=== PATIENT | female | born 1990 | race Caucasian/White ===

== ENCOUNTER 2018-08-27 09:51 | Emergency (ER) | payer OTHER, SELFPAY ==
[2018-08-27 09:55] VITALS: BP 129/90; PULSE 105; RESP 14; TEMP 36.7; O2SAT 100; BMI 19.7
--- NOTE | 2018-08-27 10:05 | DI.US.S_ITS ---
PROCEDURE: US OB <= 14 WEEKS FETUS INDICATIONS: BLEEDING OUTSIDE/PRIOR DATING DATA: Last menstrual period (LMP): 06/22/18. LMP-based estimated date of delivery (CAROLYN): 03/29/19. First dating scan (date and location): 08/27/18. Estimated date of delivery (CAROLYN) from first dating scan: 03/18/19. TECHNIQUE: Real-time scanning was performed of the fetus and maternal pelvic organs, with image documentation. Endovaginal scanning was also performed to better visualize the fetus and maternal ovaries. COMPARISON: None. FINDINGS: Embryo: A single live intrauterine is identified with heart motion detected at 175 beats per minute. A developing embryo is well visualized. A yolk sac is seen. There is a curvilinear area of hypoechogenicity that does not demonstrate internal vascularity that is located along the inferior margin of the gestational sac and encompasses at least 40% of the gestational sac. This structure is noted to extend over the internal cervical os. [place]-rump length: 4.1 cm, 11 weeks 0 days Measurement variability in dating: +/- 4 weeks by LMP, +/- 7 days by mean sac diameter (use before 6 weeks gestation if crown-rump length not able to be measured), +/- 5 days by crown-rump length (up to 8 weeks 6 days gestation), +/- 7 days by crown-rump length (up to 13 weeks 6 days gestation). Maternal organs: The right ovary is within normal limits. The left ovary was not seen. No left adnexal abnormality is appreciated. Limited images through the kidneys demonstrate no hydronephrosis. IMPRESSION: 1. Single live intrauterine at 11 weeks 0 days (current CAROLYN 03/18/19) is discordant with the clinical dates by 11 days. Followup imaging at 20 weeks would be helpful to evaluate for interval growth and anatomy. 2. Probable moderate-sized subchorionic hemorrhage along the inferior margin of the gestational sac. Dictated by: Jim Garcia M.D. on 08/27/2018 at 10:25 Approved by: Jim Garcia M.D. on 08/27/2018 at 10:28
[2018-08-27 10:28] LABS: Add Manual Diff / Slide Review NO; Basophils Absolute Auto 100 /uL (0-100); Basophils Percent Auto 0.7 % (0-2); Eosinophils Absolute Auto 100 /uL (0-450); Eosinophils Percent Auto 0.5 % (2-4); Hematocrit 37.3 % (36-46); Lymphocytes Absolute Auto 1600 /uL (1100-4500); Lymphocytes Percent Auto 15.7 % (25-40); Mean Corpuscular HGB Conc 34.9 % (30-36); Mean Corpuscular Hemoglobin 32.2 PG (26-34); Mean Corpuscular Volume 92.2 fL (80-100); Monocytes Absolute Auto 700 /uL (0-900); Monocytes Percent Auto 6.8 % (3-14); Neutrophils Absolute Auto 7800 /uL (1500-7000); Neutrophils Percent Auto 76.3 % (50-75); Platelet Count 251 X10^3/uL (150-400); Red Blood Cell Count 4.05 X10^6/uL (4.0-5.2); Red Cell Distribution Width 12.2 % (11.6-14.8); White Blood Cell Count 10.3 X10^3/uL (4.5-11.0)
[2018-08-27 11:00] VITALS: BP 101/74; PULSE 81; O2SAT 100
[2018-08-27 11:22] LABS: HCG Quantitative /Beta subunit 172040 mIU/mL
[2018-08-27 12:00] VITALS: BP 104/71; PULSE 88; O2SAT 100
--- NOTE | 2018-08-27 15:27 | ED.FEMALEGU ---
HPI - Female Genitourinary General Chief complaint: Vaginal Bleeding Stated complaint: vaginal bleeding Time Seen by Provider: 08/27/18 10:05 Source: patient Mode of arrival: ambulatory Limitations: no limitations History of Present Illness HPI Narrative: Patient states she is in her 1st trimester , and began bleeding a couple of days ago. She states that initially, it started as red blood that progressed to a light period like flow. She did not pass any tissue but did notice clots. Patient states that today the flow started as more of a brownish color then turned carpenter, and now, she is not bleeding at all. Patient denies any abdominal pain. She has not been lightheaded. Patient has not had an ultrasound yet. She states her last menstrual period was June 22, and that seemed normal. She states that otherwise, her has been going well. No other complaints at this time. Nausea or no fevers. Related Data Home Medications Medication Instructions Recorded Confirmed vit-iron fum-folic ac 1 cap PO QDAY #0 07/11/17 08/27/18 [Mynatal] Allergies Allergy/AdvReac Type Severity Reaction Status Date / Time No Known Drug Allergies Allergy Unknown Verified 08/27/18 09:59 [NO KNOWN DRUG ALLERGIES] Review of Systems Constitutional Denies chills, Denies fever(s), Denies lethargy and Denies weakness Eyes Denies change in vision, Denies eye discharge, Denies irritation and Denies loss of vision ENT Ears, Nose, Mouth, and Throat: Denies change in voice, Denies neck pain and Denies sore throat Cardiovascular Denies chest pain, Denies irregular heart rhythm, Denies lightheadedness, Denies palpitations, Denies dyspnea, Denies dyspnea on exertion and Denies orthopnea Respiratory Denies cough, Denies dyspnea, Denies dyspnea on exertion and Denies wheezing Gastrointestinal Gastrointestinal: Denies abdominal pain, Denies change in bowel habits, Denies diarrhea, Denies nausea and Denies vomiting Genitourinary Reports abnormal vaginal bleeding, Denies hematuria, Denies flank pain, Denies urinary incontinence and Denies urinary urgency Musculoskeletal Denies neck pain Integumentary/Breasts Denies pruritus, Denies erythema, Denies rash and Denies wounds Neurologic Denies confusion, Denies loss of vision and Denies weakness Psychiatric Denies anxiety, Denies confusion, Denies depression, Denies homicidal ideation and Denies suicidal ideation Endocrine Denies palpitations Hematologic/Lymphatic Denies easy bruising Allergic/Immunologic Denies wheezing [facility] Medical History (Acute) Vaginal bleeding affecting early (Acute) Surgical History No pertinent past surgical history (Acute) Social History Smoking Status: Never smoker Exam Initial Vital Signs Initial Vital Signs: Vital Signs Temperature 98.1 F 08/27/18 09:55 Pulse Rate 105 H 08/27/18 09:55 Respiratory Rate 14 08/27/18 09:55 Blood Pressure 129/90 08/27/18 09:55 Pulse Oximetry 100 08/27/18 09:55 Const General: cooperative and well developed Nutritional Appearance: well nourished Orientation: alert, awake, oriented x3 and not confused HENAZ Head: normocephalic and atraumatic Ears: external ears normal Nose: external nose normal and No nasal discharge Face and sinus: face symmetric and No dry mucous membranes Mouth: oral mucosae normal and moist mucous membranes Teeth and gingiva: dentition normal Eyes General: appearance normal, both eyes and all related structures Eyelids: eyelids normal Conjunctivae: conjunctivae normal Sclera: sclerae normal Pupils: PERRL EOM: EOM intact bilaterally Neck Neck: normal visual inspection, trachea midline, No lymphadenopathy, No midline deformity and No JVD Lymphatic: No lymphedema Chest Chest: normal inspection of the chest Resp Effort & Inspection: normal respiratory effort, able to speak in complete sentences, no respiratory distress and no use of accessory muscles Auscultation: clear to auscultation bilaterally, no rales, no rhonchi and no wheezes Cardio Rate: regular rate Rhythm: regular rhythm Heart Sounds: no click, no gallops, no murmurs and no rubs Pulses: normal peripheral pulses GI Inspection: non-distended Palpation: soft, no hepatosplenomegaly, No guarding, No pulsatile mass and No tender Back/Spine/Pelvis Back: No CVA tenderness Cervical Spine: cervical ROM normal and No pain with cervical ROM Thoracic/Lumbar Spine: thoracic and lumbar spine normal to inspection Skin General: no rashes or lesions noted, No jaundice and No petechiae Neuro General: alert, oriented x3, gait normal and no focal motor deficits Speech: speech normal Extrem General: full ROM, no clubbing, cyanosis or edema, no pedal edema and no calf tenderness Psych Appearance: well kempt Mental Status: mental status grossly normal Attitude: cooperative Thought Content: normal and suicidality Judgment: judgment good Course Course Narrative: Patient was worked up with a urinalysis and OB ultrasound, as well as CBC. Her OB ultrasound showed a viable 11 week intrauterine with subchorionic hemorrhage. I did discuss with the patient that the cause of her bleeding is most likely drainage of the hematoma, and that her is viable at this time. We have discussed her need for OB follow-up, as well as the usual indications for return. Orders Ordered: ED Orders 08/27/18 10:05 US OB <= 14 weeks fetus Stat 08/27/18 10:17 ABO RH Type Stat Complete Blood Count AUTO DIFF Stat HCG Quantitative Stat Vital Signs - 8 hr 08/27/18 11:00 08/27/18 12:00 Pulse Rate 81 88 Blood Pressure [Left Arm] 101/74 104/71 Pulse Oximetry 100 100 MDM - Female Genitourinary Medical Records Attestation: I reviewed the patient's medical records. Lab Data Attestation: I reviewed the patient's lab results. Result diagrams: 08/27/18 10:17 Lab Results 08/27/18 08/27/18 08/27/18 Range/Units 10:17 10:17 10:17 WBC 10.3 (4.5-11.0) X10^3/uL RBC 4.05 (4.0-5.2) X10^6/uL Hgb 13.0 (12.0-16.0) g/dL Hct 37.3 (36-46) % MCV 92.2 (80-100) fL MCH 32.2 (26-34) PG MCHC 34.9 (30-36) % RDW 12.2 (11.6-14.8) % Plt Count 251 (150-400) X10^3/uL Neut % (Auto) 76.3 H (50-75) % Lymph % (Auto) 15.7 L (25-40) % [place] % (Auto) 6.8 (3-14) % Eos % (Auto) 0.5 L (2-4) % Baso % (Auto) 0.7 (0-2) % Neut # (Auto) 7800 H (6486-0842) /uL Lymph # (Auto) 1600 (7966-9077) /uL [place] # (Auto) 700 (0-900) /uL Eos # (Auto) 100 (0-450) /uL Baso # (Auto) 100 (0-100) /uL HCG, Quant 726060 mIU/mL Blood Type A Positive Urine Dip Bedside Urine Glucose Negative Bedside Urine Bilirubin - Negative Bedside Urine Ketone - Negative Urine Specific [place] 1.025 Bedside Urine Occult Blood - Negative Bedside Urine pH 6.0 Bedside Urine Protein +/- 15 Bedside Urine Urobilinogen - Negative Bedside Urine Nitrite - Negative Bedside Urine Leukocytes - Negative Esterase Imaging Data Ob ultrasound: Radiologist's impression: [address] [address] Ultrasound Report Signed Patient: Pascale Rodney [facility]#: [id number] : 1990Acct:[id number] Age/Sex: FDate of Service: 08/27/18 Loc: ED Accession Number: [id number] Procedure: US OB <= 14 weeks fetus Ordering Provider: Reyna Chaudhary MD PROCEDURE: US OB <= 14 WEEKS FETUS INDICATIONS: BLEEDING OUTSIDE/PRIOR DATING DATA: Last menstrual period (LMP): 06/22/18. LMP-based estimated date of delivery (CAROLYN): 03/29/19. First dating scan (date and location): 08/27/18. Estimated date of delivery (CAROLYN) from first dating scan: 03/18/19. TECHNIQUE: Real-time scanning was performed of the fetus and maternal pelvic organs, with image documentation. Endovaginal scanning was also performed to better visualize the fetus and maternal ovaries. COMPARISON: None. FINDINGS: Embryo: A single live intrauterine is identified with heart motion detected at 175 beats per minute. A developing embryo is well visualized. A yolk sac is seen. There is a curvilinear area of hypoechogenicity that does not demonstrate internal vascularity that is located along the inferior margin of the gestational sac and encompasses at least 40% of the gestational sac. This structure is noted to extend over the internal cervical os. [place]-rump length: 4.1 cm, 11 weeks 0 days Measurement variability in dating: +/- 4 weeks by LMP, +/- 7 days by mean sac diameter (use before 6 weeks gestation if crown-rump length not able to be measured), +/- 5 days by crown-rump length (up to 8 weeks 6 days gestation), +/- 7 days by crown-rump length (up to 13 weeks 6 days gestation). Maternal organs: The right ovary is within normal limits. The left ovary was not seen. No left adnexal abnormality is appreciated. Limited images through the kidneys demonstrate no hydronephrosis. IMPRESSION: 1. Single live intrauterine at 11 weeks 0 days (current CAROLYN 03/18/19) is discordant with the clinical dates by 11 days. Followup imaging at 20 weeks would be helpful to evaluate for interval growth and anatomy. 2. Probable moderate-sized subchorionic hemorrhage along the inferior margin of the gestational sac. Dictated by: Jim Garcia M.D. on 08/27/2018 at 10:25 Approved by: Jim Garcia M.D. on 08/27/2018 at 10:28 Discharge Plan Departure Patient Disposition: Home Clinical Impression: , Vaginal bleeding affecting early Discharge Date/Time: 08/27/18 12:26 Interventions: ED Discharge Assessment Last Done: 08/27/18 12:26 Instructions: DI for Vaginal Bleeding During Activity Restrictions/Additional Instructions: Your ultrasound shows a live fetus at about 11 weeks. You were found to have a small pocket of blood, called a subchorionic hemorrhage, which is draining, and is the cause of your bleeding. There is no evidence of stress to the at this time. Please follow up with your OBGYN for further concerns, and for care. Your urinalysis was unremarkable. Prescriptions: No Action vit-iron fum-folic ac [Mynatal] 1 EACH capsule 1 cap PO QDAY Qty: 0 RF: 0
--- NOTE | 2018-08-27 15:34 | ED_ITS ---
HPI - Female Genitourinary General Chief complaint: Vaginal Bleeding Stated complaint: vaginal bleeding Time Seen by Provider: 08/27/18 10:05 Source: patient Mode of arrival: ambulatory Limitations: no limitations History of Present Illness HPI Narrative: Patient states she is in her 1st trimester , and began bleeding a couple of days ago. She states that initially, it started as red blood that progressed to a light period like flow. She did not pass any tissue but did notice clots. Patient states that today the flow started as more of a brownish color then turned carpenter, and now, she is not bleeding at all. Patient denies any abdominal pain. She has not been lightheaded. Patient has not had an ultrasound yet. She states her last menstrual period was June 22, and that seemed normal. She states that otherwise, her has been going well. No other complaints at this time. Nausea or no fevers. Related Data Home Medications Medication Instructions Recorded Confirmed vit-iron fum-folic ac 1 cap PO QDAY #0 07/11/17 08/27/18 [Mynatal] Allergies Allergy/AdvReac Type Severity Reaction Status Date / Time No Known Drug Allergies Allergy Unknown Verified 08/27/18 09:59 [NO KNOWN DRUG ALLERGIES] Review of Systems Constitutional Denies chills, Denies fever(s), Denies lethargy and Denies weakness Eyes Denies change in vision, Denies eye discharge, Denies irritation and Denies loss of vision ENT Ears, Nose, Mouth, and Throat: Denies change in voice, Denies neck pain and Denies sore throat Cardiovascular Denies chest pain, Denies irregular heart rhythm, Denies lightheadedness, Denies palpitations, Denies dyspnea, Denies dyspnea on exertion and Denies orthopnea Respiratory Denies cough, Denies dyspnea, Denies dyspnea on exertion and Denies wheezing Gastrointestinal Gastrointestinal: Denies abdominal pain, Denies change in bowel habits, Denies diarrhea, Denies nausea and Denies vomiting Genitourinary Reports abnormal vaginal bleeding, Denies hematuria, Denies flank pain, Denies urinary incontinence and Denies urinary urgency Musculoskeletal Denies neck pain Integumentary/Breasts Denies pruritus, Denies erythema, Denies rash and Denies wounds Neurologic Denies confusion, Denies loss of vision and Denies weakness Psychiatric Denies anxiety, Denies confusion, Denies depression, Denies homicidal ideation and Denies suicidal ideation Endocrine Denies palpitations Hematologic/Lymphatic Denies easy bruising Allergic/Immunologic Denies wheezing [facility] Medical History (Acute) Vaginal bleeding affecting early (Acute) Surgical History No pertinent past surgical history (Acute) Social History Smoking Status: Never smoker Exam Initial Vital Signs Initial Vital Signs: Vital Signs Temperature 98.1 F 08/27/18 09:55 Pulse Rate 105 H 08/27/18 09:55 Respiratory Rate 14 08/27/18 09:55 Blood Pressure 129/90 08/27/18 09:55 Pulse Oximetry 100 08/27/18 09:55 Const General: cooperative and well developed Nutritional Appearance: well nourished Orientation: alert, awake, oriented x3 and not confused HENDC Head: normocephalic and atraumatic Ears: external ears normal Nose: external nose normal and No nasal discharge Face and sinus: face symmetric and No dry mucous membranes Mouth: oral mucosae normal and moist mucous membranes Teeth and gingiva: dentition normal Eyes General: appearance normal, both eyes and all related structures Eyelids: eyelids normal Conjunctivae: conjunctivae normal Sclera: sclerae normal Pupils: PERRL EOM: EOM intact bilaterally Neck Neck: normal visual inspection, trachea midline, No lymphadenopathy, No midline deformity and No JVD Lymphatic: No lymphedema Chest Chest: normal inspection of the chest Resp Effort & Inspection: normal respiratory effort, able to speak in complete sentences, no respiratory distress and no use of accessory muscles Auscultation: clear to auscultation bilaterally, no rales, no rhonchi and no wheezes Cardio Rate: regular rate Rhythm: regular rhythm Heart Sounds: no click, no gallops, no murmurs and no rubs Pulses: normal peripheral pulses GI Inspection: non-distended Palpation: soft, no hepatosplenomegaly, No guarding, No pulsatile mass and No tender Back/Spine/Pelvis Back: No CVA tenderness Cervical Spine: cervical ROM normal and No pain with cervical ROM Thoracic/Lumbar Spine: thoracic and lumbar spine normal to inspection Skin General: no rashes or lesions noted, No jaundice and No petechiae Neuro General: alert, oriented x3, gait normal and no focal motor deficits Speech: speech normal Extrem General: full ROM, no clubbing, cyanosis or edema, no pedal edema and no calf tenderness Psych Appearance: well kempt Mental Status: mental status grossly normal Attitude: cooperative Thought Content: normal and suicidality Judgment: judgment good Course Course Narrative: Patient was worked up with a urinalysis and OB ultrasound, as well as CBC. Her OB ultrasound showed a viable 11 week intrauterine with subchorionic hemorrhage. I did discuss with the patient that the cause of her bleeding is most likely drainage of the hematoma, and that her is viable at this time. We have discussed her need for OB follow-up, as well as the usual indications for return. Orders Ordered: ED Orders 08/27/18 10:05 US OB <= 14 weeks fetus Stat 08/27/18 10:17 ABO RH Type Stat Complete Blood Count AUTO DIFF Stat HCG Quantitative Stat Vital Signs - 8 hr 08/27/18 11:00 08/27/18 12:00 Pulse Rate 81 88 Blood Pressure [Left Arm] 101/74 104/71 Pulse Oximetry 100 100 MDM - Female Genitourinary Medical Records Attestation: I reviewed the patient's medical records. Lab Data Attestation: I reviewed the patient's lab results. Result diagrams: 08/27/18 10:17 Lab Results 08/27/18 08/27/18 08/27/18 Range/Units 10:17 10:17 10:17 WBC 10.3 (4.5-11.0) X10^3/uL RBC 4.05 (4.0-5.2) X10^6/uL Hgb 13.0 (12.0-16.0) g/dL Hct 37.3 (36-46) % MCV 92.2 (80-100) fL MCH 32.2 (26-34) PG MCHC 34.9 (30-36) % RDW 12.2 (11.6-14.8) % Plt Count 251 (150-400) X10^3/uL Neut % (Auto) 76.3 H (50-75) % Lymph % (Auto) 15.7 L (25-40) % [place] % (Auto) 6.8 (3-14) % Eos % (Auto) 0.5 L (2-4) % Baso % (Auto) 0.7 (0-2) % Neut # (Auto) 7800 H (6156-0458) /uL Lymph # (Auto) 1600 (9313-5007) /uL [place] # (Auto) 700 (0-900) /uL Eos # (Auto) 100 (0-450) /uL Baso # (Auto) 100 (0-100) /uL HCG, Quant 906208 mIU/mL Blood Type A Positive Urine Dip Bedside Urine Glucose Negative Bedside Urine Bilirubin - Negative Bedside Urine Ketone - Negative Urine Specific [place] 1.025 Bedside Urine Occult Blood - Negative Bedside Urine pH 6.0 Bedside Urine Protein +/- 15 Bedside Urine Urobilinogen - Negative Bedside Urine Nitrite - Negative Bedside Urine Leukocytes - Negative Esterase Imaging Data Ob ultrasound: Radiologist's impression: [address] [address] Ultrasound Report Signed Patient: Pascale Rodney [facility]#: [id number] : 1990Acct:[id number] Age/Sex: FDate of Service: 08/27/18 Loc: ED Accession Number: [id number] Procedure: US OB <= 14 weeks fetus Ordering Provider: Reyna Chaudhary MD PROCEDURE: US OB <= 14 WEEKS FETUS INDICATIONS: BLEEDING OUTSIDE/PRIOR DATING DATA: Last menstrual period (LMP): 06/22/18. LMP-based estimated date of delivery (CAROLYN): 03/29/19. First dating scan (date and location): 08/27/18. Estimated date of delivery (CAROLYN) from first dating scan: 03/18/19. TECHNIQUE: Real-time scanning was performed of the fetus and maternal pelvic organs, with image documentation. Endovaginal scanning was also performed to better visualize the fetus and maternal ovaries. COMPARISON: None. FINDINGS: Embryo: A single live intrauterine is identified with heart motion detected at 175 beats per minute. A developing embryo is well visualized. A yolk sac is seen. There is a curvilinear area of hypoechogenicity that does not demonstrate internal vascularity that is located along the inferior margin of the gestational sac and encompasses at least 40% of the gestational sac. This structure is noted to extend over the internal cervical os. [place]-rump length: 4.1 cm, 11 weeks 0 days Measurement variability in dating: +/- 4 weeks by LMP, +/- 7 days by mean sac diameter (use before 6 weeks gestation if crown-rump length not able to be measured), +/ - 5 days by crown-rump length (up to 8 weeks 6 days gestation), +/- 7 days by crown-rump length (up to 13 weeks 6 days gestation). Maternal organs: The right ovary is within normal limits. The left ovary was not seen. No left adnexal abnormality is appreciated. Limited images through the kidneys demonstrate no hydronephrosis. IMPRESSION: 1. Single live intrauterine at 11 weeks 0 days (current CAROLYN 03/18/19) is discordant with the clinical dates by 11 days. Followup imaging at 20 weeks would be helpful to evaluate for interval growth and anatomy. 2. Probable moderate-sized subchorionic hemorrhage along the inferior margin of the gestational sac. Dictated by: Jim Garcia M.D. on 08/27/2018 at 10:25 Approved by: Jim Garcia M.D. on 08/27/2018 at 10:28 Discharge Plan Departure Patient Disposition: Home Clinical Impression: , Vaginal bleeding affecting early Discharge Date/Time: 08/27/18 12:26 Interventions: ED Discharge Assessment Last Done: 08/27/18 12:26 Instructions: DI for Vaginal Bleeding During Activity Restrictions/Additional Instructions: Your ultrasound shows a live fetus at about 11 weeks. You were found to have a small pocket of blood, called a subchorionic hemorrhage, which is draining, and is the cause of your bleeding. There is no evidence of stress to the at this time. Please follow up with your OBGYN for further concerns, and for care. Your urinalysis was unremarkable. Prescriptions: No Action vit-iron fum-folic ac [Mynatal] 1 EACH capsule 1 cap PO QDAY Qty: 0 RF: 0
== END 2018-08-27 12:26 | disposition home or self-care (01) ==
PROVIDERS: Emergency Provider Emergency Medicine
DX: O20.9 Hemorrhage in early pregnancy, unspecified (principal)
CPT/HCPCS: 36415; 76801; 76817; 81003; 84702; 85025; 86900; 86901; 99282; 99284

== ENCOUNTER → 2019-01-23 10:01 | Outpatient (CLI) | payer OTHER, SELFPAY ==
--- NOTE | 2019-01-23 10:03 | DI.US.S_ITS ---
PROCEDURE: US OB FOLLOW UP INDICATIONS: REVALUATE KIDNEYS AND CARDIAC OUTSIDE/PRIOR DATING DATA: Last menstrual period (LMP): 06/22/18. LMP-based estimated date of delivery (CAROLYN): 03/29/19. First dating scan (date and location): 08/27/18. Estimated date of delivery (CAROLYN) from first dating scan: 03/18/19. TECHNIQUE: Real-time scanning was performed of the fetus, with image documentation. Endovaginal scanning: Not done COMPARISON: None. FINDINGS: A single living intrauterine gestation is present. Presentation: Variable Placenta: Placental position is posterior, without previa. Amniotic fluid index: 14.5 cm, normal range is 5-24 cm. heart rate: 155 beats per minute. Maternal cervical canal: 5.1 cm long. Normal lower limit is 2.5 cm. On the current study, right renal pelvis measures 2 mm in diameter. Left renal pelvis measures 2.6 mm in diameter. Previously the right renal pelvis measures 3.8 mm in diameter. Four-chamber heart is seen and shows no gross abnormality. IMPRESSION: 1. Single live intrauterine . heart rate is 155 beats per minute. 2. Normal cardiac structures. No hydronephrosis is seen on current study. Dictated by: Bk Mcintosh M.D. on 01/23/2019 at 12:34 Approved by: Bk Mcintosh M.D. on 01/23/2019 at 12:37
[2019-01-23 12:28] LABS: Hematocrit 31.9 % (36-46); Hemoglobin 10.7 g/dL (12.0-16.0)
[2019-01-23 12:53] LABS: GTT (PREG) 1 Hour PP 50gm Dose 105 mg/dL (76-139)
[2019-01-23 17:19] LABS: Hep C Virus Ab w/Reflex Quant NEGATIVE s/c (NEGATIVE)
== END ==
PROVIDERS: PCP Family Medicine; Visit Provider Family Medicine
DX: O35.8XX0 Maternal care for other (suspected) fetal abnormality and damage, not applicable or unspecified (principal); Z3A.31 31 weeks gestation of pregnancy
CPT/HCPCS: 36415; 76816; 82950; 85014; 85018; 86787; 86803; 86850; 86900; 86901; 87086

== ENCOUNTER → 2019-02-16 09:26 | Outpatient (CLI) | payer OTHER, SELFPAY ==
[2019-02-17 08:10] LABS: Strep Grp B PCR NEG for Grp B Strep
== END ==
PROVIDERS: PCP Family Medicine; Visit Provider Family Medicine
DX: Z34.83 Encounter for supervision of other normal pregnancy, third trimester (principal); Z3A.35 35 weeks gestation of pregnancy
CPT/HCPCS: 87653

== ENCOUNTER 2019-03-23 19:00 | Inpatient (IN) | payer OTHER, SELFPAY ==
--- NOTE | 2019-03-23 20:40 | P.HP_ITS ---
History of Present Illness Date Patient Seen: 03/23/19 Time Patient Seen: 20:35 Chief complaint: Obs Narrative: Patient is a 28-year-old G3 para 2 at 40 weeks and 1 day gestational age consistent with LMP and early ultrasound. Patient states she began having mild contractions this morning. Went to [facility]. Her contractions got worse this evening became 5 minutes apart and presented to the labor and delivery for. Patient is not complaining of any fevers chills headaches dizziness blurry vision. Patient has had no leaking of fluid or vaginal discharge. Patient established care at approximately 20 weeks gestational age and had regular follow-up throughout. Her initial care was it would be. Patient has had 2 previous vaginal deliveries the 1st 1 had a laceration and a hemorrhage. Her care was complicated by mild anemia and she was placed on ferrous gluconate. labs show a positive antibody screen negative hemoglobin hematocrit 35.3 and 12 platelet count 249 VDRL nonreactive hepatitis-B surface antigen negative HIV negative GC chlamydia negative rubella nonimmune have a negative 1 hour glucose screen normal 21 week ultrasound normal anatomy right renal pelvis is prominent repeat ultrasound was normal. GBS status is negative varicella immune hepatitis C negative. Weight gain during 25 lb. Patient denies a history of heart disease blood pressure anemia kidney problems thyroid disorders. Past surgical history denies significant surgical history. History of blood transfusion with 1st . History of abnormal Pap smear with LGSIL an HPV positive. Was at Social history. Patient denies smoking drugs or alcohol during the . Patient History Medical History (Updated 09/11/18 @ 00:00 by ) (Inactive) Vaginal bleeding affecting early (Inactive) Surgical History (Updated 08/27/18 @ 15:29 by Reyna Chaudhary MD) No pertinent past surgical history (Acute) Social History marital status: Smoking Status: Never smoker alcohol intake: never substance use type: does not use Family & Social History Tobacco & Substance use: Smoking Status Never smoker alcohol intake never alcohol intake frequency 0-2 drinks per day Substance Use Type does not use Meds Home Medications Medication Instructions Recorded Confirmed Type vit-iron fum-folic ac 1 cap PO QDAY #0 07/11/17 03/16/19 History [Mynatal] docusate sodium 100 mg capsule 100 mg PO DAILY #30 cap 02/02/19 03/16/19 Rx ferrous gluconate 256 mg (28 mg 256 mg PO DAILY #60 tab 02/02/19 03/16/19 Rx iron) tablet Allergies Allergy/AdvReac Type Severity Reaction Status Date / Time No Known Drug Allergies Allergy Unknown Verified 08/27/18 09:59 [NO KNOWN DRUG ALLERGIES] Exam Narrative Exam Narrative: . General: Alert no apparent distress. Affect is appropriate. Missy it is uncomfortable. HEENT: Neck is supple without lymphadenopathy pupils equal round and reactive. Cardio: S1-S2 regular rate and rhythm. Respiratory: Lungs clear to auscultation. Abdomen: Gravid. Extremities: Normal deep tendon reflexes trace edema. [place]: Missy regularly every 3-5 minutes with 60 minute contractions moderate and strength. heart tones: Category 1 heart rate 140 Assessment & Plan Assessment & Plan narrative: 28-year-old female and she 3 para to term 40 weeks +1 day. In active labor. Nurse reports she is at 9 cm. I arrived the hospital shortly after. IV will place be placed due to her history of have range. She has intact membrane. blood work labs were reviewed. They were orders were written for. Risks benefits and common complications of labor and delivery reviewed with the patient. She is actively and labor.
[2019-03-23] MEDS: LACTATED RINGERS 1,000 ML 100 ML IV (20:58)
[2019-03-23 20:59] LABS: Add Manual Diff / Slide Review NO; Basophils Absolute Auto 100 /uL (0-100); Basophils Percent Auto 0.9 % (0-2); Eosinophils Absolute Auto 100 /uL (0-450); Eosinophils Percent Auto 0.4 % (2-4); Hematocrit 35.7 % (36-46); Hemoglobin 11.8 g/dL (12.0-16.0); Lymphocytes Absolute Auto 2800 /uL (1100-4500); Lymphocytes Percent Auto 18.2 % (25-40); Mean Corpuscular HGB Conc 33.1 % (30-36); Mean Corpuscular Hemoglobin 28.5 PG (26-34); Mean Corpuscular Volume 86.2 fL (80-100); Monocytes Absolute Auto 1000 /uL (0-900); Monocytes Percent Auto 6.4 % (3-14); Neutrophils Absolute Auto 11400 /uL (1500-7000); Neutrophils Percent Auto 74.1 % (50-75); Platelet Count 238 X10^3/uL (150-400); Red Blood Cell Count 4.14 X10^6/uL (4.0-5.2); Red Cell Distribution Width 16.1 % (11.6-14.8); White Blood Cell Count 15.4 X10^3/uL (4.5-11.0)
[2019-03-23] MEDS: OXYTOCIN PREMIX 30 UNIT/500 ML PLAST..BAG IV (21:01)
[2019-03-23 21:03] VITALS: BP 103/58
--- NOTE | 2019-03-23 22:36 | PM.PROC.1 ---
Procedures Date/Time Date of procedure: 03/23/19 Time of procedure: 22:37 General Procedure description: Stage I of labor approximately 3 hours. heart tones were reassuring. No epidural anesthesia. Category 1 tracing. Good progress. Amniotomy at 9 cm with clear fluid. GBS status is negative. Mom's heart rate blood pressure and temperature were normal throughout. Stage II of labor approximately 1 hour. Patient pushed to deliver a viable female infant direct OPP position with a nuchal cord that was loose. Patient had category 2 tracing and stage II of labor due to decelerations early and variable probably due to the nuchal cord. Baby had spontaneous cry at the time of delivery. Stage III of labor 10 minutes delivery of intact placenta. Repair of almost 1st degree midline perineal laceration. IV Pitocin was given. Patient had less than 250 cc bleeding. Patient's blood loss was as anticipated. Baby's Apgars were 9 and 9. Mom and baby resting comfortably afterwards
[2019-03-24] MEDS: IBUPROFEN 600 MG TABLET PO ×4 (00:50→19:11)
[2019-03-24 05:49] LABS: Hematocrit 32.6 % (36-46)
--- NOTE | 2019-03-24 14:20 | P.PN_ITS ---
Subjective Date Patient Seen: 03/24/19 Time Patient Seen: 14:19 Interval history: day 1. Status post vaginal delivery. Mom's doing well. Vital signs are stable. She is up ambulating. Positive urination no bowel movement. Intermittent passing of clots. Some uterine cramping. Mom is . She is tolerating her diet no vomiting. Exam Vital Signs (past 8 hours): General: Alert no apparent distress. Affect is appropriate. Missy it is uncomfortable. HEENT: Neck is supple without lymphadenopathy pupils equal round and reactive. Cardio: S1-S2 regular rate and rhythm. Respiratory: Lungs clear to auscultation. Abdomen: Uterus firm. Extremities: Normal deep tendon reflexes trace edema. Objective Labs Result Diagrams: 03/24/19 05:05 Labs: Laboratory Results - last 24 hr 03/23/19 03/23/19 03/24/19 20:35 20:35 05:05 WBC 15.4 H RBC 4.14 Hgb 11.8 L 11.0 L Hct 35.7 L 32.6 L MCV 86.2 MCH 28.5 MCHC 33.1 RDW 16.1 H Plt Count 238 Neut % (Auto) 74.1 Lymph % (Auto) 18.2 L [place] % (Auto) 6.4 Eos % (Auto) 0.4 L Baso % (Auto) 0.9 Neut # (Auto) 49495 H Lymph # (Auto) 2800 [place] # (Auto) 1000 H Eos # (Auto) 100 Baso # (Auto) 100 Blood Type A Positive Antibody Screen Negative Assessment & Plan Assessment & Plan narrative: day 1. Status post . Patient is ambulating without difficulty pain was well controlled. Hydrating well. Normal urination. Intermittent passage of clots. Bleeding is as anticipated hemoglobin hematocrit is stable. Continue with breast-feeding ibuprofen stool s oftener.
--- NOTE | 2019-03-25 07:18 | P.DS_ITS ---
History of Present Illness Chief complaint: LABOR AND DELIVERY Narrative: Patient is a 28-year-old G3 para 2 at 40 weeks and 1 day gestational age consistent with LMP and early ultrasound. Patient states she began having mild contractions this morning. Went to [facility]. Her contractions got worse this evening became 5 minutes apart and presented to the labor and delivery for. Patient is not complaining of any fevers chills headaches dizziness blurry vision. Patient has had no leaking of fluid or vaginal discharge. Patient established care at approximately 20 weeks gestational age and had regular follow-up throughout. Her initial care was it would be. Patient has had 2 previous vaginal deliveries the 1st 1 had a laceration and a hemorrhage. Her care was complicated by mild anemia and she was placed on ferrous gluconate. labs show a positive antibody screen negative hemoglobin hematocrit 35. 3 and 12 platelet count 249 VDRL nonreactive hepatitis-B surface antigen negative HIV negative GC chlamydia negative rubella nonimmune have a negative 1 hour glucose screen normal 21 week ultrasound normal anatomy right renal pelvis is prominent repeat ultrasound was normal. GBS status is negative varicella immune hepatitis C negative. Weight gain during 25 lb. Patient denies a history of heart disease blood pressure anemia kidney problems thyroid disorders. Past surgical history denies significant surgical history. History of blood transfusion with 1st . History of abnormal Pap smear with LGSIL an HPV positive. Was at Social history. Patient denies smoking drugs or alcohol during the . Discharge Providers Date of admission: 03/23/19 19:00 Discharge Date: 03/25/19 Primary care physician: Alverto Yu MD Consults: 03/23/19 23:17 Consult to Assistive Technology Specialist Routine Comment: Discharge provider: Alverto Yu MD Summary Discharge Diagnosis: Term intrauterine with vaginal delivery Routine care Hospital Course: Patient presented to labor and delivery floor in labor. Progressed to have a viable female infant. Patient had routine care. Exam Narrative Exam Narrative: General: Alert no apparent distress. Affect is appropriate. [place] it is uncomfortable. HEENT: Neck is supple without lymphadenopathy pupils equal round and reactive. Cardio: S1-S2 regular rate and rhythm. Respiratory: Lungs clear to auscultation. Abdomen: Uterus firm. Extremities: Normal deep tendon reflexes trace edema. Objective Labs Result Diagrams: 03/24/19 05:05 Discharge Plan Discharge Plan Patient Disposition: Home Discharge comment: Home follow up in [address] Yu Discharge Med Rec/Prescriptions Prescriptions: New ibuprofen 600 mg Tablet 600 mg PO Q6HR PRN (Reason: Pain, Mild (1-3)) Qty: 30 RF: 0 docusate sodium 250 mg Capsule 250 mg PO DAILY Qty: 20 RF: 0 Continued docusate sodium [Colace] 100 mg capsule 100 mg PO DAILY Qty: 30 RF: 0 ferrous gluconate 256 mg (28 mg iron) tablet 256 mg PO DAILY Qty: 60 RF: 0 Mynatal 1 EACH capsule 1 cap PO QDAY Qty: 0 RF: 0 Follow up/Referrals: Alverto Yu MD [Primary Care Provider] - Visit Report/Discharge Packet Visit Report Forms: Stroke Signs & Symptoms Discharge Data Primary Care Provider: Alverto Yu Attending Provider: Gabriel Espitia Admit Date/Time: 03/23/19 19:00
[2019-03-25 08:49] VITALS: BP 111/80; PULSE 69; RESP 16; TEMP 36.4
[2019-03-25] MEDS: DOCUSATE 250 MG CAPSULE PO (09:35)
[2019-03-25] MEDS: IBUPROFEN 600 MG TABLET PO (09:35)
[2019-03-25] MEDS: PRENATAL VIT,CALC/IRON/FOLIC 1 TABLET 1 TAB PO (09:35)
[2019-03-25] MEDS: MEASLES,MUMPS,RUBELLA VACC/PF 0.5 ML VIAL SUBCUT (10:33)
== END 2019-03-25 11:00 | disposition home or self-care (01) | DRG 807 ==
PROVIDERS: PCP Family Medicine
DX: O69.1XX0 Labor and delivery complicated by cord around neck, with compression, not applicable or unspecified (principal); Z37.0 Single live birth; O70.0 First degree perineal laceration during delivery; Z3A.40 40 weeks gestation of pregnancy
CPT/HCPCS: 59050; 59410; 85014; 85018; 85025; 86850; 86900; 86901; G0379; J2590